=== PATIENT | male | born 1995 | race Caucasian/White ===

== ENCOUNTER 2021-04-09 04:25 | Emergency (ER) | payer BC, MEDICAID ==
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
[2021-04-09 07:05] VITALS: BP 108/57; PULSE 63
--- NOTE | 2021-04-09 08:27 | CT ---
[id number] CT/CT Head WO IV EXAM: CT Head WO IV CLINICAL DATA: TRAUMA COMPARISON: No previous similar exam is available for comparison. FINDINGS: There is no mass or mass effect. There is no hemorrhage or hydrocephalus. There are no extra-axial fluid collections. There are no sites of abnormal attenuation. IMPRESSION: NO PLAIN CT EVIDENCE OF ACUTE INTRACRANIAL PROCESS. Ted Wright MD 04/09/21 0801 Thank you for allowing us to participate in the care of your patient.
== END 2021-04-09 05:59 ==
LOC: VM.ED 04:25
DX: F10.129 Alcohol abuse with intoxication, unspecified (principal)
CPT/HCPCS: 70450; 99283; 99284-25